=== PATIENT | female | born 2000 | race Caucasian/White ===

== ENCOUNTER 2021-02-04 16:18 | Emergency (ER) | payer OTHER ==
[2021-02-04 18:57] LABS: HEMOGLOBIN 11.6 gm/dl (12.3-15.3); RED BLOOD COUNT 4.96 M/UL (4.00-5.10); WHITE BLOOD COUNT 8.6 K/UL (4.5-11.0)
[2021-02-04 19:45] LABS: BUN/CREATININE RATIO 13 (0-10)
== END 2021-02-04 21:26 | disposition home or self-care (01) ==
LOC: ER1 16:18
PROVIDERS: Emergency Medicine
DX: K64.4 Residual hemorrhoidal skin tags (principal); K62.5 Hemorrhage of anus and rectum
CPT/HCPCS: 80053; 81001; 82272; 83690; 84703; 85025; 85610; 99284; Q9967

== ENCOUNTER 2021-03-28 22:25 | Emergency (ER) | payer OTHER ==
[2021-03-28 23:14] LABS: HEMOGLOBIN 11.5 gm/dl (12.3-15.3); RED BLOOD COUNT 4.99 M/UL (4.00-5.10); WHITE BLOOD COUNT 10.8 K/UL (4.5-11.0)
[2021-03-28 23:29] LABS: BUN/CREATININE RATIO 18 (0-10)
== END 2021-03-29 00:25 | disposition home or self-care (01) ==
LOC: ER1 22:25
PROVIDERS: Physician Assistant
DX: K62.5 Hemorrhage of anus and rectum (principal)
CPT/HCPCS: 80053; 83690; 85025; 99283